=== PATIENT | male | born 1975 | race Two or more races ===

== ENCOUNTER 2023-03-18 23:01 | Emergency (ER) | payer OTHER ==
[~2023-03-18] VITALS: Ht 170.2 cm; Wt 113.8 kg
[2023-03-19] MEDS ORDERED: KETOROLAC TROMETH 30 MG/ML 1ML VIAL IM ONE (02:30)
[2023-03-19] MEDS ORDERED: IBUP800T26 PO (05:42)
[2023-03-19 06:15] VITALS: BP 145/76
== END 2023-03-19 06:15 | disposition home or self-care (01) ==
LOC: ER 23:01
DX: M25.561 Pain in right knee (principal); F41.9 Anxiety disorder, unspecified
CPT/HCPCS: 29505; 73560; 96372; 99283; J1885

== ENCOUNTER 2024-08-27 19:06 | Emergency (ER) | payer MEDICAID ==
[~2024-08-27] VITALS: Ht 167.6 cm; Wt 104.5 kg
[~2024-08-27 19:06] MED LIST: IBUP-1455 PO
[2024-08-27 20:11] LABS: Basophils # (auto) 0 10 ^3/uL (0-0.2); Basophils % (auto) 0.4 % (0.0-2.0); Eosinophils # (auto) 0.1 10 ^3/uL (0-0.8); Eosinophils % (auto) 1.4 % (0.0-7.0); Hematocrit 47.5 % (41.0-53.0); Hemoglobin 16.1 g/dL (13.5-17.5); Lymphocytes # (auto) 2.2 10 ^3/uL (0.4-5.4); Lymphocytes % (auto) 26.8 % (10.0-50.0); Mean Corpuscular Hemoglobin 30.8 pg (28.0-32.0); Mean Corpuscular Hgb Conc. 33.9 g/dL (32.0-36.0); Mean Corpuscular Volume 90.9 fL (80.0-100.0); Monocytes # (auto) 0.3 10 ^3/uL (0-1.3); Neutrophils # (auto) 5.5 10 ^3/uL (1.6-8.6); Neutrophils % (auto) 67.4 % (37.0-80.0); Nucleated Red Blood Cells % 0.3 %; Platelet Count (auto) 232 10^3/uL (140-450); Red Blood Cells 5.22 10^6/uL (4.5-5.90); Red Cell Distribution Width 14.3 % (11.8-14.3); White Blood Cell 8.1 10^3/uL (4.4-10.8)
[2024-08-27 20:35] LABS: Alanine Aminotransferase 36 U/L (7-40); Albumin 4.9 g/dL (3.2-4.8); Alkaline Phosphatase 110 U/L (46-116); Anion Gap 6 (5-15); Aspartate Aminotransferase 26 U/L (13-40); BUN/Creatinine Ratio 17.7 (10.0-20.0); Blood Urea Nitrogen 17 mg/dL (9-23); Calcium 10.1 mg/dL (8.7-10.4); Carbon Dioxide 28 mmol/L (20-31); Chloride 105 mmol/L (98-107); Glucose 106 mg/dL (74-106); Lipase 53 U/L (12-53); Potassium 4.5 mmol/L (3.5-5.1); Sodium 139 mmol/L (136-145)
[2024-08-27 20:36] LABS: Bilirubin, Total 0.6 mg/dL (0.2-1.0); Total Protein 8.1 g/dL (5.7-8.2)
[2024-08-27 20:56] LABS: Urine Bacteria None Seen /hpf (None Seen)
[2024-08-27 21:13] LABS: Urine Blood Negative /uL (Negative); Urine Clarity Clear (Clear); Urine Color Light-Yellow (Yellow); Urine Mucus FEW (None Seen); Urine Protein, UAD Negative (Negative); Urine Specific Gravity 1.021 (1.001-1.035); Urine Urobilinogen Normal (Negative); Urine WBC 1 /hpf (0 - 3); Urine pH 5.5 (5.0-9.0)
[2024-08-27 23:11] VITALS: PULSE 65; RESP 16; O2SAT 96
[2024-08-28] MEDS: SUCRALFATE 1 GM TAB PO ONE (01:26)
[2024-08-28] MEDS: PANTOPRAZOLE 40 MG TAB PO ONE (01:26)
[2024-08-28 01:41] VITALS: BP 137/84; PULSE 62; RESP 16; TEMP 97.9; O2SAT 97
== END 2024-08-28 01:42 | disposition home or self-care (01) ==
LOC: ER 19:06
DX: R10.13 Epigastric pain (principal); F41.9 Anxiety disorder, unspecified; E78.5 Hyperlipidemia, unspecified; Z90.49 Acquired absence of other specified parts of digestive tract; Z98.890 Other specified postprocedural states; Z79.899 Other long term (current) drug therapy
CPT/HCPCS: 36415; 74176; 80053; 81001; 83605; 83690; 84484; 85025